=== PATIENT | female | born 1965 ===

== ENCOUNTER 2023-10-18 07:10 | Day surgery (SDC) | payer MEDICAID, OTHER ==
[~2023-10-18] VITALS: Ht 167.6 cm; Wt 88.9 kg
[2023-10-18] MEDS ORDERED: MEPERIDINE 100 MG INJ. 100 MG/ML VIAL ONE ×2 (07:50→09:16)
[2023-10-18] MEDS ORDERED: MIDAZOLAM HCL 5 MG/5 ML VIAL ONE ×2 (07:50→09:09)
[2023-10-18 09:13] VITALS: O2SAT 99
[2023-10-18 15:43] VITALS: BP_SYST 112; PULSE 78; RESP 11
== END 2023-10-18 11:00 | disposition home or self-care (01) ==
LOC: SDS 07:10 → SMU 07:12 → SDS 11:00
PROVIDERS: ATTEND Student in an Organized Health Care Education/Training Program
DX: K59.09 Other constipation (principal); D12.0 Benign neoplasm of cecum; K21.9 Gastro-esophageal reflux disease without esophagitis; K57.30 Diverticulosis of large intestine without perforation or abscess without bleeding; K64.8 Other hemorrhoids; J45.909 Unspecified asthma, uncomplicated; E11.9 Type 2 diabetes mellitus without complications; I10 Essential (primary) hypertension; Z90.710 Acquired absence of both cervix and uterus; Z80.0 Family history of malignant neoplasm of digestive organs; Z86.010 Personal history of colon polyps; Z79.899 Other long term (current) drug therapy
CPT/HCPCS: 45385; 99152; 82948; 88305; 99153; G0378; J2250; J2175